=== PATIENT | female | born 1970 | race Hispanic/Latino ===

== ENCOUNTER → 2017-10-07 | Outpatient (CLI) | payer MEDICARE ==
[2017-10-04 15:30] VITALS: BP 151/70
[2017-10-04 15:32] LABS: BASOPHILS % (AUTO) 0.5 % (0.0-5.0); EOSINOPHILS % (AUTO) 3.8 % (0.0-8.0); HEMATOCRIT 30.5 % (36-48); LYMPHOCYTES % (AUTO) 30.6 % (21.0-51.0); MEAN CORPUSCULAR HEMOGLOBIN 30.6 pg (27.0-33.0); MEAN CORPUSCULAR HGB CONC 34.8 g/dL (32.0-36.0); MEAN CORPUSCULAR VOLUME 87.8 fL (79-99); NEUTROPHILS % (AUTO) 61.1 % (40.0-77.0); PLATELET COUNT (AUTO) 272 K/uL (130-400); RED BLOOD CELL COUNT(AUTO) 3.48 MIL/uL (4.00-5.50); RED CELL DISTRIBUTION WIDTH 12.8 % (11.0-15.5); WHITE BLOOD COUNT (AUTO) 5.8 K/uL (4.8-10.8)
[2017-10-04 15:41] LABS: CREATININE 1.7 mg/dL (0.5-1.5)
[2017-10-04 16:10] LABS: APPEARANCE,URINE Clear (CLEAR); BILIRUBIN,URINE Negative (NEGATIVE); COLOR,URINE Dark Yellow (YELLOW); GLUCOSE, URINE (UA) Negative (NEGATIVE); KETONES,URINE Negative (NEGATIVE); LEUKOCYTE ESTERASE ,URINE Moderate (NEGATIVE); NITRATE,URINE Negative (NEGATIVE); OCCULT BLOOD,URINE Negative (NEGATIVE); PROTEIN,URINE Trace (NEGATIVE); UROBILINOGEN,URINE 0.2 mg/dL (0.2-1.0)
[2017-10-04 16:24] LABS: BACTERIA,URINE Few /HPF (None Seen); RBC,URINE None Seen /HPF (0-1)
[2017-10-04 16:25] LABS: MUCUS,URINE Few LPF (None Seen)
[~2017-10-07] VITALS: Ht 161.3 cm; Wt 97.8 kg
[~2017-10-07] MED LIST: ATOR40TA71 PO; BUPIVACAINE/EPI/PF 0.25% 30ML VIAL IJ ONE; CEFAZOLIN SODIUM 1 GM VIAL ONE; DOCU100C33 PO; FERR325T22 PO; FOLI1TAB61 PO; INSU10VI3 SQ; INSU3INS5 SQ; LATA2.5D2 OD; LEVO75TA10 PO; LUBI24CA2 PO; SODI650T PO; TRANEXAMIC ACID 1000MG/10ML IV ONE
[2017-10-07 08:05] VITALS: BP 130/59
[2017-10-07] MEDS: LEVOFLOXACIN 500 MG/D5W 100 ML 100 ML IV SCH (08:29)
[2017-10-07] MEDS: CEFAZOLIN SODIUM 1 GM VIAL IVP SCH (08:30)
[2017-10-07] MEDS: OXYCODONE HCL 10 MG TAB.SR.12H PO ONE (08:47)
[2017-10-07] MEDS: METOCLOPRAMIDE 10 MG/2 ML VIAL ONE (08:47)
[2017-10-07] MEDS: ACETAMINOPHEN EXTRA STRENGTH 500 MG TABLET ONE (08:48)
[2017-10-07] MEDS: SODIUM CHLORIDE 0.9% 1000ML 1,000 ML IV ONE (08:49)
== END | disposition home or self-care (01) ==
LOC: EDSTATUS 10-04 15:00 → DAHIP 07:31 → UNDOADMIN 07:31 → LAB 10:13
PROVIDERS: ATTEND Orthopaedic Surgery
DX: M17.11 Unilateral primary osteoarthritis, right knee (principal); R07.9 Chest pain, unspecified
CPT/HCPCS: 36415; 80048; 81001; 82948; 85025; A4218; J1956; J2765; J3490 ×2; J7030; J0690

== ENCOUNTER 2023-02-24 22:07 | Emergency (ER) | payer MEDICARE ==
[~2023-02-24] VITALS: Ht 154.9 cm; Wt 113.4 kg
[~2023-02-24 22:07] MED LIST changes: -BUPIVACAINE/EPI/PF 0.25% 30ML VIAL IJ ONE; -CEFAZOLIN SODIUM 1 GM VIAL ONE; +LATA2.5D14 OD; -LATA2.5D2 OD; -TRANEXAMIC ACID 1000MG/10ML IV ONE
[2023-02-24] MEDS ORDERED: IBUPROFEN 600 MG TABLET PO ONE (23:00)
[2023-02-24] MEDS ORDERED: GUAIFENESIN-DM 200/20 MG 10 ML PO ONE (23:00)
[2023-02-24 23:08] LABS: BASOPHILS % (AUTO) 0.7 % (0.0-5.0); EOSINOPHILS % (AUTO) 3.3 % (0.0-8.0); LYMPHOCYTES % (AUTO) 31.9 % (21.0-51.0); MEAN CORPUSCULAR HEMOGLOBIN 29.4 pg (27.0-33.0); MEAN CORPUSCULAR HGB CONC 33.9 g/dL (32.0-36.0); MEAN CORPUSCULAR VOLUME 86.7 fL (79-99); MONOCYTES % (AUTO) 5.9 % (3.0-13.0); NEUTROPHILS % (AUTO) 58.2 % (40.0-77.0); PLATELET COUNT (AUTO) 232 K/uL (130-400); RED BLOOD CELL COUNT(AUTO) 4.15 MIL/uL (4.00-5.50); RED CELL DISTRIBUTION WIDTH 12.2 % (11.0-15.5); WHITE BLOOD COUNT (AUTO) 6.1 K/uL (4.8-10.8)
[2023-02-24 23:25] LABS: CREATININE 1.9 mg/dL (0.5-1.5); POTASSIUM 3.8 mmol/L (3.5-5.1)
[2023-02-24 23:29] LABS: TOTAL PROTEIN, SERUM 7.9 g/dL (6.0-8.3)
[2023-02-24] MEDS ORDERED: PHEN118L19 PO (23:34)
[2023-02-24] MEDS ORDERED: BENZ-39 PO (23:34)
[2023-02-24 23:36] LABS: B-TYPE NATRIURETIC PEPTIDE 8 pg/mL (0-100)
[2023-02-25 00:29] VITALS: BP 132/60
== END 2023-02-25 00:39 | disposition home or self-care (01) ==
LOC: EDH 22:07
DX: R09.89 Other specified symptoms and signs involving the circulatory and respiratory systems (principal); T17.208A Unspecified foreign body in pharynx causing other injury, initial encounter; R07.89 Other chest pain; I12.9 Hypertensive chronic kidney disease with stage 1 through stage 4 chronic kidney disease, or unspecified chronic kidney disease; E11.22 Type 2 diabetes mellitus with diabetic chronic kidney disease; N18.9 Chronic kidney disease, unspecified; E03.9 Hypothyroidism, unspecified; Z59.00 Homelessness unspecified; Z59.7 Insufficient social insurance and welfare support; Z88.2 Allergy status to sulfonamides; Z20.822 Contact with and (suspected) exposure to COVID-19; X58.XXXA Exposure to other specified factors, initial encounter; Y93.89 Activity, other specified; Y92.89 Other specified places as the place of occurrence of the external cause; Y99.8 Other external cause status
CPT/HCPCS: 99285; 71045; 87635; 84484; 80053; 83880; 85025; 87880; 87804 ×2; 36415; 93005; C9803